=== PATIENT | male | born 1970 | race African-American/Black ===

== ENCOUNTER 2017-10-17 20:22 | Emergency (ER) | payer MEDICAID ==
--- NOTE | 2017-10-17 20:44 | Emergency Department Record ---
History of Present Illness - General Chief Complaint: Loss of consciousness Stated Complaint: SEIZURE Time Seen by Provider: 10/17/17 20:37 Source: Patient Mode of Arrival: EMS Limitations: No limitations - History of Present Illness Initial Comments: 47 yo male presents by EMS after a possible syncopal episode and fall. By history he hit his head and was briefly confused. He became fully oriented again on the transit to the ED. He recalls "slipping". He does not remember hitting his head. He does recall the EMS transportation. He denies chest pain , shortness of breath, headache, dizziness. He states he has no complaints at this time. He denies a history of syncope or seizure. He states he was working several hours with his father in law on his car. It was in a garage with the door open. He states he did not eat all day. He is fully oriented, no confusion, no signs of AMS during this initial interview. A and O to person , place, time, date, situation, President, PCP, address, events earlier today, explained the problems with the car all without hesitation or confusion. Onset/Timin -: Hour(s) History of same: No Place: Home - [place] Coma Scale Eye Response: (4) Open spontaneously Motor Response: (6) Obeys commands Verbal Response: (5) Oriented [place] Total: 15 - Related Data Allergies/Adverse Reactions: Allergies Allergy/AdvReac Type Severity Reaction Status Date / Time No Known Drug Allergies Allergy Verified 10/17/17 20:30 Travel Screening - Travel/Exposure Within Last 30 Days Have you traveled within the last 30 days?: No - Travel Symptoms Symptom Screening: Weakness Review of Systems Constitutional: Denies: Chills, Fever, Malaise, Weakness Eyes: Denies: Eye discharge, Eye pain, Photophobia, Vision change ENT: Denies: Congestion, Throat pain Respiratory: Denies: Cough, Dyspnea, Hemoptysis, Stridor, Wheezes Cardiovascular: Reports: Syncope. Denies: Chest pain, Dyspnea on exertion, Edema, Palpitations Endocrine: Denies: Fatigue, Polydipsia, Polyuria Gastrointestinal: Denies: Abdominal pain, Constipation, Nausea, Vomiting Genitourinary: Denies: Dysuria, Frequency, Hematuria, Incontinence Musculoskeletal: Denies: Arthralgia, Back pain, Joint swelling, Myalgia, Neck pain Skin: Denies: Bruising, Change in color, Rash Neurological: Denies: Confusion, Headache, Numbness, Paresthesias, Seizure, Tingling, Tremors, Vertigo, Weakness Psychiatric: Denies: Anxiety Hematological/Lymphatic: Denies: Blood Clots, Easy bleeding, Easy bruising, Swollen glands Past Medical History - SOCIAL HISTORY Smoking Status: Never smoker Alcohol Use: None Drug Use: None - RESPIRATORY Hx Respiratory Disorders: No - CARDIOVASCULAR Hx Cardio Disorders: Yes Hx Hypertension: Yes - NEURO Hx Neuro Disorders: No - Hx Genitourinary Disorders: No - ENDOCRINE Hx Endocrine Disorders: No - MUSCULOSKELETAL Hx Musculoskeletal Disorders: No - PSYCH Hx Psych Problems: No - HEMATOLOGY/ONCOLOGY Hx Hematology/Oncology Disorders: No Family Medical History Any Significant Family History?: No Physical Exam - General General Appearance: Alert, Oriented x3, Cooperative, No acute distress Limitations: No limitations - Head Head exam: Atraumatic, Normocephalic, Normal inspection Head exam detail: negative: Abrasion, Contusion, Hematoma, Laceration - Eye Eye exam: Normal appearance, PERRL, EOMI. negative: Conjunctival injection, Nystagmus, Periorbital swelling, Scleral icterus - ENT ENT exam: Normal exam, Mucous membranes moist, Normal orophraynx Ear exam: Normal external inspection Nasal Exam: Normal inspection Mouth exam: Normal external inspection Teeth exam: Normal inspection Throat exam: Normal inspection. negative: Tonsillar erythema, Tonsillar exudate - Neck Neck exam: Normal inspection, Full ROM. negative: Tenderness - Respiratory Respiratory exam: Normal lung sounds bilaterally. negative: Respiratory distress, Rhonchi, Stridor, Wheezes - Cardiovascular Cardiovascular Exam: Regular rate, Normal rhythm, Normal heart sounds Peripheral Pulses: 2+: Radial (R), Radial (L) - GI/Abdominal GI/Abdominal exam: Soft. negative: Distended, Guarding, Rebound, Tenderness - Rectal Rectal exam: Deferred - exam: Deferred - Extremities Extremities exam: Normal inspection, Full ROM, Normal capillary refill. negative: Tenderness - Back Back exam: Reports: Normal inspection, Full ROM. Denies: Muscle spasm, Rash noted, Tenderness - Neurological Neurological exam: Alert, CN II-XII intact, Normal gait, Oriented X3, Reflexes normal. negative: Altered, Motor sensory deficit - Psychiatric Psychiatric exam: Normal affect, Normal mood. negative: Agitated, Anxious, Depressed, Flat affect, Manic - Skin Skin exam: Dry, Intact, Normal color, Warm Course Vital Signs 10/17/17 20:29 Temperature 97.9 F Pulse Rate [ 95 H Pulse Ox Probe] Respiratory 20 Rate Blood Pressure 156/111 [Left Arm] Pulse Ox 98 - Reevaluation(s) Reevaluation #1: EKG 21:09 NSR rate 87, intervals Qtc 470, axis normal, ST LVH, No old for comparison. Remains oriented without confusion. NO AMS. 10/17/17 21:15 10/17/17 21:38 The labs were reviewed No changes on the CBC The K is 3.1. Potassium was ordered The remained CMP was negative The COHgb was normal for a smoker at 4 The Troponin is negative The HCT was read as normal. 10/17/17 21:46 The patient's is here now. She states she was called by her dad. He witnessed the event. The patient was seen clutching his chest then collapsed. I explained that he should be transferred to a hospital with cardiac testing capabilities. [facility] does not have cardiology or ECHO 10/18. I recommended transfer to [facility]. He has initially declined. I discussed the risks and benefits of transfer vs leaving including a heart attack, seizure, . He will discuss this with his . 10/17/17 22:07 I again discussed AMA with the patient. He still refuses transfer. He has seen Dr Acharya in the past. He will call his tomorrow. We discussed he can return or be seen any time. He understands the risks of leaving including but not limited to syncope, , heart attack, heart rhythm abnormality, seizure. 10/17/17 22:[address] Acharya once a year for HTN. He will call him tomorrow Medical Decision Making - Lab Data Result diagrams: 10/17/17 20:50 10/17/17 20:50 Disposition Disposition: Other Clinical Impression: Syncope Qualifiers: Encounter type: initial encounter Disposition: Against Medical Advice Condition: (3) Guarded Instructions: Syncope (ED), Against Medical Advice (ED) Additional Instructions: Call your doctors tomorrow Return or be seen in an ER if any symptoms occur or if you change your mind about further immediate tests You are signing out AMA at this time Referrals: [facility] ACHARYA [] - Forms: Patient Portal Access Time of Disposition: 22:09 Quality - Quality Measures Quality Measures: N/A - Blood Pressure Screening Does Patient Have Any of the Following: No Blood Pressure Classification: Hypertensive Reading Systolic Measurement: 140 Diastolic Measurement: 116 Screening for High Blood Pressure: < Pre-Hypertensive BP, F/U Documented > [ G8950] Pre-Hypertensive Follow-up Interventions: Referral to alternative/primary care provider.
[2017-10-17 21:04] LABS: BASO % 0.7 % (0-6); GRAN % 64.1 % (47-80); HEMATOCRIT 39.7 % (42.0-52.0); HEMOGLOBIN 13.2 gm/dl (14.0-18.0); LYMPH % 22.9 % (16-45); MEAN CELL VOLUME 95.2 fl (81-97); MEAN CORPUSCULAR HGB CONC 33.2 g/dl (32-36); MEAN PLATELET VOLUME 9.7 fl (7.4-10.4); MONO % 8.3 % (0-9); PLATELET COUNT 201 K/uL (130-400); RED BLOOD COUNT 4.17 M/uL (4.40-5.70); RED CELL DISTRIBUTION WIDTH 13.1 % (11.5-14.5); WHITE BLOOD COUNT W/O DIFF 4.2 K/uL (4.2-12.2)
[2017-10-17 21:05] LABS: MEAN CORPUSCULAR HEMOGLOBIN 31.6 pg (27-33)
[2017-10-17 21:15] LABS: BLOOD UREA NITROGEN 9 mg/dL (6-20); CREATININE 0.9 mg/dL (0.7-1.2); EST GLOMERULAR FILTRATION RATE > 60 mL/min
[2017-10-17 21:18] LABS: GLUCOSE,RANDOM 108 mg/dL (74-109)
[2017-10-17] MEDS: POTASSIUM CHLORIDE 20 MEQ TABLET PO ONE (21:48)
--- NOTE | 2017-10-18 20:10 | CT SCAN REPORT ---
EXAM: CT SCAN HEAD WO CONTRAST HISTORY: SEIZURE. TECHNIQUE: CT brain without. COMPARISON: None. FINDINGS: The globes are intact. Polyps of the right maxillary sinus. No displaced or depressed skull fracture. No intra or extraaxial hemorrhage. CT is limited for the evaluation of acute infarct. No CT evidence for large or territorial acute infarct. No mass or midline shift. IMPRESSION: NEGATIVE FOR ACUTE INTRACRANIAL ABNORMALITY. JOB NUMBER: [id number] [facility]
== END 2017-10-17 22:20 | disposition left against medical advice (07) ==
LOC: ER 20:22
DX: S09.90XA Unspecified injury of head, initial encounter (principal); R55 Syncope and collapse; R79.89 Other specified abnormal findings of blood chemistry; I10 Essential (primary) hypertension; W01.198A Fall on same level from slipping, tripping and stumbling with subsequent striking against other object, initial encounter; Y92.008 Other place in unspecified non-institutional (private) residence as the place of occurrence of the external cause
CPT/HCPCS: 70450; 80048; 82375; 83735; 84484; 85025; 93005; 93010; 99284

== ENCOUNTER 2019-05-10 21:20 | Emergency (ER) | payer MEDICARE, MEDICAID ==
[2019-05-10 21:53] LABS: ABSOLUTE NEUTROPHIL COUNT 8.24; BASO % 0.4 % (0-6); EOS % 4.1 % (0-6); GRAN % 73.7 % (47-80); HEMATOCRIT 34.9 % (42.0-52.0); HEMOGLOBIN 11.2 gm/dl (14.0-18.0); LYMPH % 14.9 % (16-45); MEAN CELL VOLUME 102.3 fl (81-97); MEAN CORPUSCULAR HEMOGLOBIN 32.8 pg (27-33); MEAN CORPUSCULAR HGB CONC 32.1 g/dl (32-36); MEAN PLATELET VOLUME 9.1 fl (7.4-10.4); MONO % 6.9 % (0-9); PLATELET COUNT 444 K/uL (130-400); RED BLOOD COUNT 3.41 M/uL (4.40-5.70); RED CELL DISTRIBUTION WIDTH 13.7 % (11.5-14.5); WHITE BLOOD COUNT W/O DIFF 11.2 K/uL (4.2-12.2)
--- NOTE | 2019-05-10 22:00 | Emergency Department Record ---
History of Present Illness - General Chief Complaint: General Stated Complaint: CONSTIPATED Time Seen by Provider: 05/10/19 21:21 Source: Patient Mode of Arrival: Ambulatory Limitations: No limitations - History of Present Illness Initial Comments: The patient is here due to a 3 day hx of constipation and abdominal cramping with abdominal distension. He has been having some small liquid stools and also denies any fever, nausea, vomiting, or dysuria. The patient has a hx of chronic back pain and is on high dose narcotics. He has no hx of any abdominal surgeries. The patient has been in the hospital at [facility] for the past week and has been home for 2 days. Additionally the patient has no new back pain, and no leg numbness or weakness. He has been having difficulty urinating. MD Complaint: Abdominal pain Onset/Timin -: Days(s) - Related Data Home Medications Medication Instructions Recorded Confirmed Last Taken Budesonide/Formoterol Fumarate 1 puff INH ASDIR 05/10/19 05/10/19 05/10/19 [Symbicort 160-4.5 Mcg Inhaler] Hydrocodone/Acetaminophen 3 tab PO DAILY 05/10/19 05/10/19 05/10/19 [Hydrocodone/Acetaminophen 7.5mg/325mg] Loratadine 1 tab PO DAILY 05/10/19 05/10/19 05/10/19 Morphine Sulfate [Morphine Sulfate 15 mg PO BID 05/10/19 05/10/19 05/10/19 ER] Naloxone HCl [Narcan] 1 spray INH ASDIR 05/10/19 05/10/19 05/10/19 Thiamine HCl [Vitamin B-1] 100 mg PO DAILY 05/10/19 05/10/19 05/10/19 Allergies Allergy/AdvReac Type Severity Reaction Status Date / Time No Known Drug Allergies Allergy Verified 05/10/19 21:31 Travel Screening - Travel/Exposure Within Last 30 Days Have you traveled within the last 30 days?: No - Travel/Exposure Within Last Year Have you traveled outside the [place] in the last year?: No - Additonal Travel Details Have you been exposed to anyone with a communicable illness?: No - Travel Symptoms Symptom Screening: None Review of Systems Constitutional: Denies: Chills, Fever Eyes: Denies: Eye discharge ENT: Denies: Congestion Respiratory: Denies: Cough, Dyspnea Past Medical History - SOCIAL HISTORY Smoking Status: Current every day smoker Alcohol Use: Rare Drug Use: Occasional Drug Use Detail:: Marijuana, Opiates - RESPIRATORY Hx Respiratory Disorders: Yes Hx Asthma: Yes - CARDIOVASCULAR Hx Cardio Disorders: Yes Hx Hypertension: Yes - NEURO Hx Neuro Disorders: No - GI Hx GI Disorders: Yes Hx Reflux: Yes - Hx Genitourinary Disorders: No - ENDOCRINE Hx Endocrine Disorders: No - MUSCULOSKELETAL Hx Musculoskeletal Disorders: Yes - PSYCH Hx Psych Problems: No - HEMATOLOGY/ONCOLOGY Hx Hematology/Oncology Disorders: No Family Medical History Any Significant Family History?: No Physical Exam - General General Appearance: Alert, Oriented x3, Cooperative, No acute distress - Head Head exam: Atraumatic, Normocephalic, Normal inspection - Eye Eye exam: Normal appearance, PERRL - ENT Throat exam: Normal inspection. negative: Tonsillar erythema, Tonsillar exudate - Neck Neck exam: Normal inspection, Full ROM. negative: Tenderness - Respiratory Respiratory exam: Normal lung sounds bilaterally. negative: Respiratory distress - Cardiovascular Cardiovascular Exam: Regular rate, Normal rhythm, Normal heart sounds. negative: Diastolic murmur, Systolic murmur - GI/Abdominal GI/Abdominal exam: Soft, Distended, Tenderness (There is mild LLQ tenderness.). negative: Rebound, Rigid - Extremities Extremities exam: Normal inspection, Full ROM, Normal capillary refill. negative: Tenderness - Neurological Neurological exam: Alert, Normal gait, Oriented X3, Reflexes normal, Other (Neg SLR bilaterally.). negative: Abnormal gait, Altered, Motor sensory deficit Course Vital Signs 05/10/19 05/10/19 21:34 21:42 Temperature 99.2 F 99.2 F Pulse Rate 101 H Pulse Rate [ 102 H Pulse Ox Probe] Respiratory 20 20 Rate Blood Pressure 119/88 Blood Pressure 119/88 [Left Arm] Pulse Ox 99 99 - Reevaluation(s) Reevaluation #1: We did place a covarrubias catheter in the patient and did get 700 cc's of urine out. I then did rectal the patient and did digitally disimpact him. We will try a Milk of Mollasses enema and if that does not work will give the patient Relistor SC. 05/10/19 23:03 Reevaluation #2: The patient is doing a LOT better at this time. He had a LARGE BM with a soap suds enema and feels back to normal. On exam his abdomen is very soft and nontender. The patient is ready for home. I did discuss the need to F/U with his PCP due to the abnormal lab results and the patient will comply. 05/10/19 23:30 Medical Decision Making - Data Complexity MDM Data: Labs Ordered and/or Reviewed, X-Ray Ordered and/or Reviewed - Lab Data Result diagrams: 05/10/19 21:46 05/10/19 21:46 Lab Results 05/10/19 Range/Units 21:46 WBC 11.2 (4.2-12.2) K/uL RBC 3.41 L (4.40-5.70) M/uL Hgb 11.2 L (14.0-18.0) gm/dl Hct 34.9 L (42.0-52.0) % MCV 102.3 H (81-97) fl MCH 32.8 (27-33) pg MCHC 32.1 (32-36) g/dl RDW 13.7 (11.5-14.5) % Plt Count 444 H (130-400) K/uL MPV 9.1 (7.4-10.4) fl Gran % 73.7 (47-80) % Lymphocytes % 14.9 L (16-45) % Monocytes % 6.9 (0-9) % Eosinophils % 4.1 (0-6) % Basophils % 0.4 (0-6) % Absolute Neutrophils 8.24 - Radiology Data Radiology results: Report reviewed (CT: Distended bladder with large colonic stool and probable fecal impaction.) Disposition Disposition: Discharge Clinical Impression: Constipation Qualifiers: Constipation type: drug induced constipation Qualified Code(s): K59.03 - Drug induced constipation Disposition: Home, Self-Care Condition: (2) Stable Instructions: Constipation (ED) Additional Instructions: The patient is to decrease his Opiod intake for 3 days and to take the Mg Citrate tomorrow, 1/2 in the AM and 1/2 in the PM. He is also to start on Miralax daily and to return to the ER for any worsening symptoms, pain or vomiting. Forms: Patient Portal Access Time of Disposition: 23:32 Quality - Quality Measures Quality Measures: N/A - Blood Pressure Screening View Details: Yes Does Patient Have Any of the Following: No Blood Pressure Classification: Pre-Hypertensive BP Reading Systolic Measurement: 119 Diastolic Measurement: 88 Screening for High Blood Pressure: < Pre-Hypertensive BP, F/U Documented > [G 8950] Pre-Hypertensive Follow-up Interventions: Referral to alternative/primary care provider.
[2019-05-10 22:07] LABS: BLOOD UREA NITROGEN 6 mg/dL (6-20); CREATININE 0.6 mg/dL (0.7-1.2); EST GLOMERULAR FILTRATION RATE > 60 mL/min
[2019-05-10 22:08] LABS: LIPASE 48 U/L (13-60); TOTAL PROTEIN 7.4 g/dL (6.6-8.7)
[2019-05-10 22:10] LABS: GLUCOSE,RANDOM 118 mg/dL (74-109)
[2019-05-10 22:12] LABS: ALT/SGPT 50 U/L (<41); AST/SGOT 65 U/L (10.0-50.0)
[2019-05-10 22:13] LABS: ALKALINE PHOSPHATASE 101 U/L (40-129); BILIRUBIN,DIRECT < 0.2 mg/dL (0-0.3)
[2019-05-10 22:14] LABS: ALBUMIN 4.2 g/dL (4.0-5.0)
[2019-05-10] MEDS ORDERED: LIDOCAINE UROJECT 10 ML APPL MM ONE (22:22)
[2019-05-10 22:47] LABS: URINE APPEARANCE CLEAR; URINE BILIRUBIN NEGATIVE (NEGATIVE); URINE BLOOD TRACE-I (NEGATIVE); URINE COLOR YELLOW; URINE GLUCOSE (UA) NEGATIVE (NEGATIVE); URINE KETONE NEGATIVE (NEGATIVE); URINE LEUKOCYTE ESTERASE NEGATIVE (NEGATIVE); URINE NITRITE NEGATIVE (NEGATIVE); URINE PROTEIN NEGATIVE (NEGATIVE); URINE UROBILINOGEN 0.2 E.U./dL (0.20 - 1.00)
[2019-05-10 22:55] LABS: URINE EPITHELIAL CELLS NONE SEEN (FEW); URINE RBC 0 - 2 (NONE SEEN); URINE WBC NONE SEEN (0-2/hpf)
[2019-05-10] MEDS ORDERED: METHYLNALTREXONE BROMIDE (RELISTOR) 12MG/0.6ML SYRINGE SQ ONE (23:08)
[2019-05-10] MEDS ORDERED: MAGNESIUM CITRATE 296 ML BTL PO ONE (23:29)
--- NOTE | 2019-05-12 14:52 | CT SCAN REPORT ---
EXAM: CT SCAN OF THE ABDOMEN AND PELVIS WITHOUT CONTRAST HISTORY: ABDOMINAL PAIN AND DISTENTION. LOOSE STOOLS. UNABLE TO URINATE. TECHNIQUE: Standard CT imaging of the abdomen and pelvis was performed without contrast. Additional coronal and sagittal reformatted images were also performed. Comparison: None. FINDINGS: The lung bases are clear. The liver, gallbladder, biliary tree, pancreas, spleen, and adrenal glands are normal. The kidneys and ureters are unremarkable. There is no urinary tract calculus or hydronephrosis. The aorta is normal in caliber. There is no retroperitoneal lymphadenopathy. There is a large amount of stool throughout the colon. There is mild wall thickening and adjacent fat stranding within the rectal region suggesting fecal impaction. The small bowel loops are normal in caliber. The appendix is unremarkable. There is no pneumoperitoneum or ascites. There is mild distention of the urinary bladder. There are no focal abnormalities. There are no surrounding inflammatory changes. The seminal vesicles and prostate gland appear normal. Degenerative changes are present within the spine. There are no acute osseous abnormalities. IMPRESSION: 1. THERE IS A LARGE AMOUNT OF STOOL WITHIN THE COLON TO THE RECTUM WITH MILD ASSOCIATED RECTAL WALL THICKENING/INFLAMMATION SUGGESTING FECAL IMPACTION. 2. MILDLY DISTENDED URINARY BLADDER WITH NO FOCAL ABNORMALITIES. 3. THE REMAINING PORTIONS OF THE ABDOMEN AND PELVIS APPEAR NORMAL. JOB NUMBER: [id number] [facility]
== END 2019-05-10 23:54 | disposition home or self-care (01) ==
LOC: ER 21:20
DX: K59.03 Drug induced constipation (principal); T40.2X5A Adverse effect of other opioids, initial encounter; R10.32 Left lower quadrant pain; R30.0 Dysuria; M54.9 Dorsalgia, unspecified; G89.29 Other chronic pain; I10 Essential (primary) hypertension; F17.210 Nicotine dependence, cigarettes, uncomplicated
CPT/HCPCS: 74176; 80048; 80076; 81001; 83690; 85025; 99284